=== PATIENT | male | born 1950 | race Caucasian/White ===

== ENCOUNTER 2017-05-02 02:32 | Emergency (ER) | payer MEDICARE ==
[2017-06-06 12:58] VITALS: BMI 20.9
== END 2017-05-02 09:26 | disposition home or self-care (01) ==
LOC: D.ER 02:32
DX: S16.1XXA Strain of muscle, fascia and tendon at neck level, initial encounter (principal); W19.XXXA Unspecified fall, initial encounter; Y93.89 Activity, other specified; Y92.019 Unspecified place in single-family (private) house as the place of occurrence of the external cause; S39.012A Strain of muscle, fascia and tendon of lower back, initial encounter; I10 Essential (primary) hypertension

== ENCOUNTER 2017-06-05 19:25 | Observation (INO) | payer MEDICARE ==
[~2017-06-05] VITALS: Ht 180.3 cm; Wt 68.2 kg
[2017-06-05 20:34] LABS: BASOPHILS 0.3 % (0-2); EOSINOPHILS 2.7 % (0-7); HEMATOCRIT 32.7 % (42.0-54.0); HEMOGLOBIN 11.6 g/dL (13.5-17.5); IMMATURE GRANULOCYTES 0.5 % (0-5); LYMPHOCYTES 29.1 % (15-50); MCH 33.9 pg (26.0-34.0); MCHC 35.5 g/dL (31.0-37.0); MCV 95.6 fL (80.0-100.0); MEAN PLATELET VOLUME 8.3 fL (7.4-10.4); MONOCYTES 16.4 % (2-11); RBC 3.42 10x6/uL (4.20-6.10); RDW 13.3 % (11.5-14.5); WBC 6.6 10x3/uL (4.8-10.8)
[2017-06-05 20:41] LABS: APPEARANCE CLEAR (CLEAR); BILIRUBIN NEGATIVE (NEGATIVE); COLOR YELLOW (YELLOW); GLUCOSE NEGATIVE (NEGATIVE); KETONE NEGATIVE (NEGATIVE); NITRITE NEGATIVE (NEGATIVE); PLATELET COUNT 326 10x3/uL (130-400); PROTEIN NEGATIVE (NEGATIVE); SPECIFIC GRAVITY 1.015 (1.005-1.020); UROBILINOGEN NORMAL (NORMAL)
[2017-06-05 21:03] LABS: PROTIME 12.8 SECONDS (11.6-15.0)
[2017-06-05 22:55] LABS: ALBUMIN 2.8 g/dL (3.4-5.0); ALKALINE PHOSPHATASE 68 U/L (46-116); ALT (SGPT) 33 U/L (10-68); CALC OSMOLALITY 261 mosm/kg (275-300); CHLORIDE - SERUM 97 mmol/L (98-107); CREATINE KINASE 50 UL (21-232); CREATININE - SERUM 0.8 mg/dL (0.6-1.3); GLUCOSE 95 mg/dL (74-106); POTASSIUM - SERUM 4.5 mmol/L (3.5-5.1); PROTEIN - SERUM 6.9 g/dL (6.4-8.2); SODIUM 130 mmol/L (136-145); UREA NITROGEN 14 mg/dL (7-18); eGFR NON AFRICAN AMERICAN > 90 mL/min (90-120)
[2017-06-06 00:16] VITALS: BP 153/92; BMI 20.9
[2017-06-06] MEDS ORDERED: MINERAL OIL25 ML PO (03:52)
[2017-06-06] MEDS ORDERED: MIRALAX17 GM PO (03:53)
[2017-06-06] MEDS ORDERED: PROZAC10 MG PO (03:53)
[2017-06-06] MEDS ORDERED: FLINTSTONE1 TAB.CHEW PO (03:53)
[2017-06-06] MEDS ORDERED: VITAMIN B-1100 M1 PO (03:54)
[2017-06-06] MEDS ORDERED: MUCUS RELIEF400 MG PO (03:56)
[2017-06-06] MEDS ORDERED: IPRAT-ALBUT 0.5-3 ML UPD (03:57)
[2017-06-06 04:16] VITALS: BP 117/66
[2017-06-06 12:00] VITALS: BP 119/72
[2017-06-06 12:58] VITALS: Ht 180.3 cm; Wt 68.2 kg
[2017-06-06] MEDS ORDERED: BACTRIM DS TABL1 TAB PO (13:21)
== END 2017-06-06 14:24 ==
LOC: D.ER 19:25 → D.WS 23:05 → OBSVTIME 23:05 → D.WS 06-06 14:24
PROVIDERS: Nurse Practitioner Family
DX: R55 Syncope and collapse (principal); W19.XXXA Unspecified fall, initial encounter; J01.90 Acute sinusitis, unspecified; F32.9 Major depressive disorder, single episode, unspecified